=== PATIENT | female | born 1990 | race Caucasian/White ===

== ENCOUNTER 2024-08-12 12:09 | Emergency (ER) | payer OTHER, SELFPAY ==
[2024-08-12 12:18] VITALS: BP 131/88
--- NOTE | 2024-08-12 12:54 | ED.GENMED ---
History of Present Illness
General
Chief Complaint: Medication Reaction
Source: patient
Time Seen by Provider: 08/12/24 12:30
History of Present Illness
History of Present Illness:
33-year-old female presents to the emergency room for evaluation after inadvertently taking her 's medication. Patient took a pill of Tecfidera. Her prescribed this for MS. After taking the medication she began to feel flushed and
itchy all over. 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 Staff at the school strongly recommended she come to the emergency room for evaluation. Patient had taken 25 of Benadryl to help with the
symptoms. Patient is also concerned that she is breast-feeding and unsure whether she needs to be concerned about this. She denies any shortness of breath, tongue or lip swelling.
Phy Exam
Physical Exam
Physical Exam:
General: Awake, Alert, Oriented X3. No acute distress.
Vitals: unremarkable
Head: Atraumatic
Eyes: Pupils equal, EOMI
Throat: Airway intact, no exudates
Neck: Trachea midline
Lungs: Clear and equal b/l
Heart: Regular rate, no murmurs
Abd: Soft, Nontender, No pulsatile mass
Neuro: Nonfocal
Skin: Warm, dry, no rash
Extremities: pulses equal b/l, no edema
Course
Vital Signs
Initial and Last Documented VS:
Initial Vital Signs
Temp Pulse Resp BP Pulse Ox
97.9 F 72 16 131/88 100
08/12/24 12:18 08/12/24 12:18 08/12/24 12:18 08/12/24 12:18 08/12/24 12:18
Last Documented Vital Signs
Temp Pulse Resp BP Pulse Ox
97.9 F 72 16 131/88 100
08/12/24 12:18 08/12/24 12:18 08/12/24 12:18 08/12/24 12:18 08/12/24 12:18
MDM/Problems Addressed
Differential Diagnosis Includes:
Allergic reaction, adverse reaction
MDM/Problems Addressed:
Symptoms patient describes are known to be side effects of the medication. I do not believe she had a allergic reaction. Most of her symptoms have resolved at this point. She is stable for discharge. This medication is not considered dangerous
while breast-feeding. However patient has an adequate supply of frozen milk at home and will therefore 'pump and dump' for the next 24 hours.
*Pulse Oximetry
Patient hypoxic: no
*Critical Care Note
Total Time (30-74mins, 75-104mins- exclusive of procedures): Not Applicable
ED Attending Note
-
Portions of this chart may have been created with voice recognition software.� Occasional wrong word or��sound alike� substitutions may have occurred due to the inherent limitations of voice recognition software.
Discharge Plan
Departure
Patient Disposition: Home (Routine Discharge)
Date of Disposition: 08/12/24
Time of Disposition: 12:59
Patient with high blood pressure during this ER visit?: No
Condition: Good
Discharge Problem:
Adverse drug effect
Instructions: Adverse Drug Reactions, Adult ED
Referrals:
Deep Alexandra DO [Family Provider] -
Discharge Date and Time
Print Language: FRENCH
[2024-08-12 13:18] VITALS: BP 122/80
== END 2024-08-12 13:19 | disposition home or self-care (01) ==
LOC: EMR 12:09
PROVIDERS: EMERGENCY PHYSICIAN Emergency Medicine; FAMILY PHYSICIAN Family Medicine
DX: T50.991A Poisoning by other drugs, medicaments and biological substances, accidental (unintentional), initial encounter (principal); L29.9 Pruritus, unspecified; R23.2 Flushing
CPT/HCPCS: 99282